=== PATIENT | male | born 1950 | race Caucasian/White ===

== ENCOUNTER 2022-03-06 13:00 | Outpatient (CLI) | payer OTHER ==
[2022-03-06] MEDS ORDERED: CYSTOGRAFIN 300 ML INFUS..BTL UR ONE (13:25)
== END 2022-03-06 19:33 | disposition home or self-care (01) ==
LOC: SRD 13:00
PROVIDERS: ATTEND Urology
DX: C61 Malignant neoplasm of prostate (principal)
CPT/HCPCS: 51600; 74430; Q9958